=== PATIENT | male | born 1995 | race Caucasian/White ===

== ENCOUNTER → 2020-04-27 | Outpatient (REF) | payer OTHER, SELFPAY | LOC: M LAB REF 17:24 | PROVIDERS: ATTEND Dermatology | DX: D23.72 Other benign neoplasm of skin of left lower limb, including hip (principal) ==

== ENCOUNTER 2021-04-21 05:46 | Emergency (ER) | payer OTHER, SELFPAY ==
[~2021-04-21] VITALS: Ht 177.8 cm; Wt 105.0 kg
[2021-04-21] MEDS ORDERED: NS 1,000 ML IV ONE (07:05)
[2021-04-21] MEDS ORDERED: ACETAMINOPHEN 500 MG TAB PO ONE (07:15)
[2021-04-21] MEDS ORDERED: BENZONATATE 100 MG CAP PO ONE (07:15)
[2021-04-21 07:51] VITALS: O2SAT 94
[2021-04-21 08:01] LABS: BASO % 0.2 % (0.0-1.0); HEMATOCRIT 41.9 % (42.0-52.0); HEMOGLOBIN 14.6 g/dl (13.5-17.5); LYMPH # 0.7 10^3/uL (1.5-5.0); LYMPH % 13.5 % (24.0-44.0); MEAN CORPUSCULAR HEMOGLOBIN 30.4 pg (27.0-33.0); MEAN CORPUSCULAR HGB CONC 34.8 g/dl (32.0-36.5); MEAN CORPUSCULAR VOLUME 87.3 fl (80.0-96.0); MONO # 0.3 10^3/uL (0.0-0.8); MONO % 5.9 % (2.0-8.0); NEUTROPHILS # 3.9 10^3/uL (1.5-8.5); NEUTROPHILS % 79.6 % (36.0-66.0); PLATELET COUNT, AUTOMATED 136 10^3/uL (150-450); WHITE BLOOD COUNT 4.9 10^3/uL (4.0-10.0)
[2021-04-21 08:34] LABS: ALBUMIN 3.4 GM/DL (3.2-5.2); ALT/SGPT 35 U/L (12-78); BILIRUBIN,DIRECT 0.2 MG/DL (0.0-0.2); BILIRUBIN,TOTAL 0.6 MG/DL (0.2-1.0); BLOOD UREA NITROGEN 17 MG/DL (7-18); CALCIUM LEVEL 8.2 MG/DL (8.5-10.1); CARBON DIOXIDE LEVEL 31 MEQ/L (21-32); CHLORIDE LEVEL 99 MEQ/L (98-107); CK-MB VALUE MASS < 1.0 NG/ML (<3.6); CPK CREATINE PHOSPHOKINASE 235 U/L (39-308); CREATININE FOR GFR 0.98 MG/DL (0.70-1.30); GLOMERULAR FILTRATION RATE > 60.0 (>60); GLUCOSE, FASTING 137 MG/DL (70-100); LDH LACTATE DEHYDROGENASE 415 U/L (87-241); LIPASE 79 U/L (73-393); MB/CK RELATIVE INDEX 0.43 (< OR =4); POTASSIUM SERUM 3.9 MEQ/L (3.5-5.1); SODIUM LEVEL 135 MEQ/L (136-145); TOTAL PROTEIN 6.7 GM/DL (6.4-8.2); TROPONIN I < 0.02 NG/ML (< 0.10)
--- NOTE | 2021-04-21 08:49 | REP ---
INDICATION: Abdominal Pain COMPARISON: None. TECHNIQUE: Upright view of the chest with supine and upright views of the abdomen and pelvis. FINDINGS: Frontal upright view of the chest demonstrates no acute cardiopulmonary process or free air below the diaphragm to suspect pneumoperitoneum. Supine and upright views of the abdomen and pelvis demonstrate nonspecific bowel gas pattern without obstruction or perforation. No organomegaly. No abnormal calcifications. Skeletal structures normal for age. IMPRESSION: Nonspecific bowel gas pattern. <Electronically signed by Amor Coto > 04/21/21 [id number]
--- NOTE | 2021-04-21 08:58 | ECGEPIP ---
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
[2021-04-21] MEDS ORDERED: PROAAER10 INH (09:25)
[2021-04-21] MEDS ORDERED: TESS100C PO (09:25)
[2021-04-21 09:37] VITALS: BP 125/58
== END 2021-04-21 10:20 | disposition home or self-care (01) ==
LOC: M ED 05:46
DX: U07.1 COVID-19 (principal); D69.6 Thrombocytopenia, unspecified

== ENCOUNTER 2021-04-24 13:03 | Inpatient (IN) | payer OTHER ==
[~2021-04-24] VITALS: Ht 177.8 cm; Wt 98.0 kg
[~2021-04-24 13:03] MED LIST: PROAAER10 INH; TESS100C PO
[2021-04-24] MEDS ORDERED: ACETAMINOPHEN 325 MG TAB PO ONE (15:35)
[2021-04-24] MEDS ORDERED: dexameTHASONE 20MG/5ML VIAL (J1100 PER 1MG) IV ONE (15:35)
[2021-04-24] MEDS ORDERED: HOME MED LIST COMPLETE! XX SCH (15:45)
[2021-04-24] MEDS: ALBUTEROL 90 MCG/ACT 8GM HFA INHALER INH SCH ×3 (15:55→17:55)
[2021-04-24 16:00] LABS: VENOUS BASE EXCESS 5.6 (-2.0-2.0); VENOUS HCO3 31.4 MEQ/L (23.0-27.0); VENOUS O2 SATURATION 79.3 % (60.0-80.0); VENOUS PARTIAL PRESSURE CO2 49.9 mmHg (38.0-50.0); VENOUS PARTIAL PRESSURE O2 42.8 mmHg (30.0-50.0); VENOUS PH 7.416 UNITS (7.330-7.430); VENOUS TOTAL CO2 32.9 MEQ/L (24.0-28.0)
--- NOTE | 2021-04-24 16:20 | REP ---
INDICATION: Coronavirus workup. COMPARISON: 04/21/2021 frontal view obtained as part of an abdominal series TECHNIQUE: Portable FINDINGS: The technique utilized in obtaining the radiograph has magnified the cardiac silhouette and accentuated the interstitial markings. Patchy bilateral airspace opacities have developed since the last exam. These are accentuated by technique. The CP angles appear sharp. The cardiomediastinal silhouette is stable. There is no change in the osseous structures. IMPRESSION: Bilateral airspace disease consistent with pneumonia <Electronically signed by Marko Hsieh > 04/24/21 [id number]
[2021-04-24 16:40] LABS: HEMATOCRIT 42.3 % (42.0-52.0); HEMOGLOBIN 14.4 g/dl (13.5-17.5); MEAN CORPUSCULAR HEMOGLOBIN 30.6 pg (27.0-33.0); MEAN CORPUSCULAR VOLUME 89.8 fl (80.0-96.0); PLATELET COUNT, AUTOMATED 218 10^3/uL (150-450); RED BLOOD COUNT 4.71 10^6/uL (4.30-6.10); WHITE BLOOD COUNT 5.7 10^3/uL (4.0-10.0)
[2021-04-24 17:28] LABS: ALBUMIN 2.9 GM/DL (3.2-5.2); ALT/SGPT 35 U/L (12-78); BILIRUBIN,TOTAL 0.9 MG/DL (0.2-1.0); BLOOD UREA NITROGEN 16 MG/DL (7-18); CALCIUM LEVEL 8.1 MG/DL (8.5-10.1); CARBON DIOXIDE LEVEL 32 MEQ/L (21-32); CHLORIDE LEVEL 99 MEQ/L (98-107); CK-MB VALUE MASS < 1.0 NG/ML (<3.6); CPK CREATINE PHOSPHOKINASE 297 U/L (39-308); CREATININE FOR GFR 0.88 MG/DL (0.70-1.30); FERRITIN 2795 NG/ML (26-388); GLOMERULAR FILTRATION RATE > 60.0 (>60); GLUCOSE, FASTING 96 MG/DL (70-100); LDH LACTATE DEHYDROGENASE 761 U/L (87-241); MAGNESIUM LEVEL 2.5 MG/DL (1.8-2.4); MB/CK RELATIVE INDEX 0.34 (< OR =4); POTASSIUM SERUM 4.2 MEQ/L (3.5-5.1); SODIUM LEVEL 135 MEQ/L (136-145); TOTAL PROTEIN 6.4 GM/DL (6.4-8.2); TROPONIN I < 0.02 NG/ML (< 0.10)
[2021-04-24 17:42] LABS: ATYPICAL LYMPH 2 % (0-5); LYMPHOCYTES 17 % (16-44); MONOCYTES 8 % (0-5); NEUTROPHILS 63 % (28-66); PLATELET ESTIMATE NORMAL (NORMAL)
[2021-04-24 18:31] LABS: RSV AMPLIFICATION NEGATIVE (NEGATIVE)
[2021-04-24] MEDS ORDERED: ALBUTEROL 90 MCG/ACT 8GM HFA INHALER INH PRN (19:20)
[2021-04-24] MEDS ORDERED: ISOVUE-370 76% 100ML VIAL As Ordered ONE (19:38)
[2021-04-24] MEDS ORDERED: NS 1,000 ML IV SCH (20:25)
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
--- NOTE | 2021-04-24 21:14 | REPVR ---
PROCEDURE INFORMATION: Exam: CTA Chest With Contrast Exam date and time: 04/24/2021 8:31 PM Age: 25 years old Clinical indication: Other: Hypoxia, covid, eval for pe TECHNIQUE: Imaging protocol: Computed tomographic angiography of the chest with contrast. 3D rendering (Not supervised by radiologist): MIP and/or 3D reconstructed images were created by the technologist. Radiation optimization: All CT scans at this facility use at least one of these dose optimization techniques: automated exposure control; mA and/or kV adjustment per patient size (includes targeted exams where dose is matched to clinical indication); or iterative reconstruction. Contrast material: ISOVUE 370; Contrast volume: 75 ml; Contrast route: INTRAVENOUS (IV); COMPARISON: CR PORTABLE CHEST X-RAY 04/24/2021 3:51 PM FINDINGS: Pulmonary arteries: There are no pulmonary emboli. Aorta: There is no aortic dissection or aneurysm. Lungs: Extensive bilateral airspace opacities predominantly peripherally located. Findings consistent with multifocal pneumonitis. Pleural spaces: Unremarkable. No pneumothorax. No pleural effusion. Heart: Unremarkable. No cardiomegaly. No pericardial effusion. Lymph nodes: Unremarkable. No enlarged lymph nodes. Bones/joints: Unremarkable. No acute fracture. Soft tissues: Unremarkable. IMPRESSION: 1. Extensive bilateral airspace opacities predominantly peripherally located. Findings consistent with multifocal pneumonitis. 2. There is no aortic dissection or aneurysm. 3. There are no pulmonary emboli. Electronically signed by: Octaviano Pearson On 04/24/2021 21:14:17 PM
[2021-04-24 23:29] VITALS: BP 113/70
[2021-04-24] MEDS: BENZONATATE 100 MG CAP PO SCH (23:35)
[2021-04-25] VITALS (7 sets, daily range): BP systolic 115–120; BP diastolic 70–80; PULSE 89; O2SAT 89–92
[2021-04-25 01:51] LABS: HEMATOCRIT 43.8 % (42.0-52.0); HEMOGLOBIN 15.1 g/dl (13.5-17.5); MEAN CORPUSCULAR HEMOGLOBIN 30.9 pg (27.0-33.0); MEAN CORPUSCULAR HGB CONC 34.5 g/dl (32.0-36.5); MEAN CORPUSCULAR VOLUME 89.8 fl (80.0-96.0); PLATELET COUNT, AUTOMATED 232 10^3/uL (150-450); RED BLOOD COUNT 4.88 10^6/uL (4.30-6.10); WHITE BLOOD COUNT 3.2 10^3/uL (4.0-10.0)
[2021-04-25 02:23] LABS: ATYPICAL LYMPH 6 % (0-5); LYMPHOCYTES 21 % (16-44); METAMYELOCYTES 1 % (0-0); MONOCYTES 6 % (0-5); NEUTROPHILS 64 % (28-66); PLATELET ESTIMATE NORMAL (NORMAL)
[2021-04-25 02:31] LABS: BLOOD UREA NITROGEN 20 MG/DL (7-18); CALCIUM LEVEL 9.1 MG/DL (8.5-10.1); CARBON DIOXIDE LEVEL 31 MEQ/L (21-32); CHLORIDE LEVEL 100 MEQ/L (98-107); CREATININE FOR GFR 0.83 MG/DL (0.70-1.30); GLOMERULAR FILTRATION RATE > 60.0 (>60); GLUCOSE, FASTING 142 MG/DL (70-100); MAGNESIUM LEVEL 2.7 MG/DL (1.8-2.4); POTASSIUM SERUM 4.2 MEQ/L (3.5-5.1); SODIUM LEVEL 136 MEQ/L (136-145); TROPONIN I < 0.02 NG/ML (< 0.10)
[2021-04-25] MEDS ORDERED: FUROSEMIDE 20MG/2ML VIAL (J1940) IV ONE (04:10)
[2021-04-25] MEDS ORDERED: CALCIUM GLUCONATE 1,000 MG in D5W MINI-BAG PLUS 100 ML IV ONE (05:00)
[2021-04-25] MEDS: COMBIVENT RESPIMAT 100-20MCG INHALER 4GM INH SCH ×3 (07:49→18:03)
[2021-04-25] MEDS: ENOXAPARIN 40MG/0.4ML SYRINGE (J1650 PER 10MG) SC SCH (08:53)
[2021-04-25] MEDS: ASCORBIC ACID 500 MG TAB PO SCH (08:54)
[2021-04-25] MEDS: dexameTHASONE 4 MG/ML 1ML VIAL (J1100 PER 1MG) IV SCH (08:54)
[2021-04-25] MEDS: ZINC SULFATE 220 MG CAP PO SCH (08:54)
[2021-04-25] MEDS: BENZONATATE 100 MG CAP PO SCH ×3 (08:54→21:05)
[2021-04-25] MEDS: ASPIRIN 81MG ENTERIC TABLET PO SCH (08:54)
[2021-04-25] MEDS: guaiFENesin ER 600 MG TAB PO SCH ×2 (09:00→21:05)
--- NOTE | 2021-04-25 10:10 | ECGEPIP ---
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
--- NOTE | 2021-04-25 11:05 | IPNPDOC ---
Text Note Date of Service The patient was seen on 04/25/21. NOTE Subjective: Patient is a 25-year-old male without any significant PMHx admitted overnight for acute respiratory failure secondary to COVID19 pneumonia. He states he first became sick on 04/14/2021 with fatigue and chest pain. He went to an urgent care on Thursday, 04/15 and tested negative, but states they did not get far enough back in his nose. He then represented to an urgent care on 04/17 where he tested positive for Covid pneumonia and was sent home with an inhaler and an incentive spirometer. Since then he has become progressively more short of breath and has experienced fatigue, non-productive cough, loose stools, with some intermittent chest pain. He was admitted overnight and has already progressed from 3 to 6 L nasal cannula. Otherwise he states he has had no changes since last night and outside of the nonproductive cough states that he feels fine. Objective: Vitals: See below General: Pleasant, mildly diaphoretic appearing male laying back in bed in no acute distress speaking in complete sentences HEENT: NC, AT. EOMI, no scleral icterus. No pharyngeal erythema, mucous membranes moist. Neck: No lymphadenopathy or JVD CV: RRR, Normal S1 and S2. No murmurs, gallops, or rubs. Resp: CTAB with mildly diminished breath sounds. No wheezes, crackles, or rhonchi. No dullness to percussion. Abdomen: Bowel sounds present. Soft, NT, ND. Extremities: No swelling or edema. Microbiology: Blood cultures pending x2 Assessment/Plan: #. Acute respiratory failure 2/2 COVID19 pneumonia - Patient has not received any vaccinations in the past - Suspected day 1 of illness 04/14/2021, currently on day 12 of illness, outside remdesivir and monoclonal antibody window. -Discussed advanced directives, he wishes to be full code, unsure of whether or not he would want trach/peg. -CTA chest showing viral pneumonitis, no signs of PE. -Procalcitonin 0.05 will hold off on any antibiotic therapy -IV Decadron twice daily day 1, will continue x6 days - Will start supportive care with Mucinex / Incentive spirometer / Acapella #. Chest pain -Troponins x3 are negative, EKG w/ T wave inversions in his inferior leads but is not actively complaining of any chest pain/pressure while he was in the room or getting the EKG done, No ST changes. #. Hypermagnesemia -Continue to monitor, patient is asymptomatic -Mag mildly increased today but with no ECG changes (QT prolongation, QRS duration, [place] prolongation) -No signs of magnesium toxicity (nausea, flushing, headache, lethargy, drowsiness) #. Obesity - BMI 32.4 -Complicating medical care -risk factor for worsening COVID pneumonia #. DVT prophylaxis -BMI<35, normal CrCl, D dimer<4000, Lovenox 40mg CODE STATUS: FULL CODE Dispo: - Pending clinical improvement VS,Fishbone, I+O VS, Fishbone, I+O Laboratory Tests 04/24/21 15:45 04/25/21 01:42 Vital Signs Date Time Temp Pulse Resp B/P (MAP) Pulse Ox O2 Delivery O2 Flow Rate FiO2 04/25/21 08:00 97.2 71 18 120/70 (87) 91 Nasal Cannula 5.0 GME ATTESTATION GME ATTESTATION My faculty preceptor for this patient encounter was physically present during the encounter and was fully available. All aspects of the patient interview, examination, medical decision making process, and medical care plan development were reviewed and approved by the faculty preceptor. The faculty preceptor is aware and concurs with the plan as stated in the body of this note and will a ttest to such by his/her cosignature. ATTENDING NOTE I, Aditi Rehman, have independently examined this patient and performed my own physical exam, as well as reviewed the documentation and edited where necessary. I have discussed in detail with the resident / student the findings and plan of treatment as documented by the resident / student and edited their note. I agree with their findings and treatment plan and have edited their documentation. I will continue to follow the patient during this hospital stay. I have advised the patient that he would benefit from receiving Remdesivir - Patient has reported that he disagrees and that it will in fact increase the amount of time in the hospital - I again stressed importance / benefit that it will provide early in the infection process - Patient has adamantly refused - has been made aware of the risk of not starting therapy (worsening of infection, disability and/or ); has verbalized understanding BRENDAN MANSFIELD DO Apr 25, 2021 11:05 ADITI REHMAN MD Apr 25, 2021 13:23
--- NOTE | 2021-04-25 18:47 | ECGEPIP ---
[facility] - ED Test Date: 2021-04-24 Pat Name: BARBARA SNYDER Department: Room: - Gender: Male Housing Relocation: JONATAN : 1995 Requested By: CARMITA VERGARA Order Number: [id number] Reading MD: Isamar Black Measurements Intervals [place] Rate: 98 P: 30 VT: 134 QRS: 21 QRSD: 72 T: -15 QT: 344 QTc: 439 Interpretive Statements Normal sinus rhythm T wave abnormality, consider inferior ischemia similar 04/21/21 Electronically Signed on 04-25-2021 18:47:17 EDT by Isamar Black
[2021-04-26] VITALS (22 sets, daily range): BP systolic 99–130; BP diastolic 56–80; O2SAT 88–95
[2021-04-26] MEDS: COMBIVENT RESPIMAT 100-20MCG INHALER 4GM INH SCH ×5 (07:56→23:33)
[2021-04-26 07:58] LABS: HEMATOCRIT 43.5 % (42.0-52.0); HEMOGLOBIN 14.9 g/dl (13.5-17.5); MEAN CORPUSCULAR HEMOGLOBIN 30.8 pg (27.0-33.0); MEAN CORPUSCULAR HGB CONC 34.3 g/dl (32.0-36.5); MEAN CORPUSCULAR VOLUME 89.9 fl (80.0-96.0); PLATELET COUNT, AUTOMATED 315 10^3/uL (150-450); RED BLOOD COUNT 4.84 10^6/uL (4.30-6.10); WHITE BLOOD COUNT 8.2 10^3/uL (4.0-10.0)
[2021-04-26 08:08] LABS: INR 1.09; PARTIAL THROMBOPLASTIN TIME 27.6 SECONDS (25.9-37.0); PROTHROMBIN TIME 14.5 SECONDS (12.7-14.5)
[2021-04-26 08:53] LABS: ATYPICAL LYMPH 10 % (0-5); LYMPHOCYTES 13 % (16-44); MONOCYTES 3 % (0-5); NEUTROPHILS 74 % (28-66)
[2021-04-26 08:54] LABS: PLATELET ESTIMATE NORMAL (NORMAL)
[2021-04-26 09:09] LABS: ALT/SGPT 38 U/L (12-78); BILIRUBIN,DIRECT 0.4 MG/DL (0.0-0.2); BILIRUBIN,TOTAL 0.9 MG/DL (0.2-1.0); BLOOD UREA NITROGEN 31 MG/DL (7-18); CALCIUM LEVEL 8.7 MG/DL (8.5-10.1); CARBON DIOXIDE LEVEL 33 MEQ/L (21-32); CHLORIDE LEVEL 102 MEQ/L (98-107); CPK CREATINE PHOSPHOKINASE 86 U/L (39-308); CREATININE FOR GFR 0.77 MG/DL (0.70-1.30); FERRITIN 2318 NG/ML (26-388); GLOMERULAR FILTRATION RATE > 60.0 (>60); GLUCOSE, FASTING 105 MG/DL (70-100); LDH LACTATE DEHYDROGENASE 575 U/L (87-241); MAGNESIUM LEVEL 2.7 MG/DL (1.8-2.4); POTASSIUM SERUM 4.4 MEQ/L (3.5-5.1); SODIUM LEVEL 141 MEQ/L (136-145); TOTAL PROTEIN 6.6 GM/DL (6.4-8.2); TROPONIN I < 0.02 NG/ML (< 0.10)
[2021-04-26] MEDS: ASPIRIN 81MG ENTERIC TABLET PO SCH (09:58)
[2021-04-26] MEDS: BENZONATATE 100 MG CAP PO SCH ×3 (09:58→20:59)
[2021-04-26] MEDS: ZINC SULFATE 220 MG CAP PO SCH (09:58)
[2021-04-26] MEDS: ASCORBIC ACID 500 MG TAB PO SCH (09:58)
[2021-04-26] MEDS: guaiFENesin ER 600 MG TAB PO SCH ×2 (09:58→20:59)
[2021-04-26] MEDS: ENOXAPARIN 40MG/0.4ML SYRINGE (J1650 PER 10MG) SC SCH (09:59)
[2021-04-26] MEDS: dexameTHASONE 4 MG/ML 1ML VIAL (J1100 PER 1MG) IV SCH (09:59)
--- NOTE | 2021-04-26 11:53 | IPNPDOC ---
Text Note Date of Service The patient was seen on 04/26/21. NOTE Subjective: No acute events overnight. Patient continues to have ongoing non productive cough, chest pain that he attributes from the cough itself and some mild shortness of breath. Outside of that there have been no changes he states from yesterday. He denies any fever, chills, nausea, vomiting, abdominal pain, swelling in his arms or his legs. Objective: Vitals: See below General: Pleasant, mildly diaphoretic appearing male laying back in bed in no acute distress speaking in complete sentences HEENT: NC, AT. EOMI, no scleral icterus. No pharyngeal erythema, mucous m embranes moist. Neck: No lymphadenopathy or JVD CV: RRR, Normal S1 and S2. No murmurs, gallops, or rubs. Resp: CTAB with full breath sounds. No wheezes, crackles, or rhonchi. No dullness to percussion. Abdomen: Bowel sounds present. Soft, NT, ND. Extremities: No swelling or edema. Vascular: Capillary refill less than 2 seconds. Microbiology: Blood cultures pending x2 Assessment/Plan: #. Acute respiratory failure 2/2 COVID19 pneumonia - Patient has not received any Covid vaccinations in the past - Suspected day 1 of illness 04/14/2021, currently on day 13 of illness, outside remdesivir and monoclonal antibody window. -Discussed advanced directives, he wishes to be full code, unsure of whether or not he would want trach/peg. -CTA chest showing viral pneumonitis, no signs of PE. -Repeat procalcitonin pending. Other inflammatory markers appear to be downtrending. -IV Decadron twice daily day 2, will continue x6 days - Will continue care with Mucinex / Incentive spirometer / Acapella #. Chest pain -Troponins x3 are negative, EKG w/ T wave inversions in his inferior leads but is not actively complaining of any chest pain/pressure while he was in the room or getting the EKG done, No ST changes. #. Hypermagnesemia -Continue to monitor, patient is asymptomatic -Mag unchanged today but with no ECG changes (QT prolongation, QRS duration, [place] prolongation) -No signs of magnesium toxicity (nausea, flushing, headache, lethargy, drowsiness) #. Obesity - BMI 32.4 -Complicating medical care -risk factor for worsening COVID pneumonia #. DVT prophylaxis -BMI<35, normal CrCl, D dimer<4000, Lovenox 40mg CODE STATUS: FULL CODE Dispo: - Pending clinical improvement VS,Fishbone, I+O VS, Fishbone, I+O Laboratory Tests 04/26/21 07:14 Vital Signs Date Time Temp Pulse Resp B/P (MAP) Pulse Ox O2 Delivery O2 Flow Rate FiO2 04/26/21 09:02 8.0 04/26/21 08:12 97.5 72 17 99/56 (70) 95 High Flow Cannula I&O- Last 24 Hours up to 6 AM 04/26/21 06:00 Intake Total 0 ml Output Total 450 ml Balance -450 ml GME ATTESTATION GME ATTESTATION My faculty preceptor for this patient encounter was physically present during the encounter and was fully available. All aspects of the patient interview, examination, medical decision making process, and medical care plan development were reviewed and approved by the faculty preceptor. The faculty preceptor is aware and concurs with the plan as stated in the body of this note and will attest to such by his/her cosignature. ATTENDING NOTE I, Aditi Rehman, have independently examined this patient and performed my own physical exam, as well as reviewed the documentation and edited where necessary. I have discussed in detail with the resident / student the findings and plan of treatment as documented by the resident / student and edited their note. I agree with their findings and treatment plan and have edited their documentation. I will continue to follow the patient during this hospital stay. BRENDAN MANSFIELD DO Apr 26, 2021 11:53 ADITI REHMAN MD Apr 26, 2021 13:05
[2021-04-26 16:24] LABS: NT-PRO BNP 22 PG/ML (<125)
[2021-04-27] VITALS (18 sets, daily range): BP systolic 105–131; BP diastolic 55–73; O2SAT 89–96
[2021-04-27] MEDS: COMBIVENT RESPIMAT 100-20MCG INHALER 4GM INH SCH ×6 (03:30→23:28)
[2021-04-27 05:02] LABS: BASO % 0.2 % (0.0-1.0); HEMATOCRIT 42.4 % (42.0-52.0); HEMOGLOBIN 14.3 g/dl (13.5-17.5); LYMPH # 1.6 10^3/uL (1.5-5.0); LYMPH % 15.2 % (24.0-44.0); MEAN CORPUSCULAR HEMOGLOBIN 30.7 pg (27.0-33.0); MEAN CORPUSCULAR HGB CONC 33.7 g/dl (32.0-36.5); MONO # 0.9 10^3/uL (0.0-0.8); MONO % 8.6 % (2.0-8.0); NEUTROPHILS # 7.7 10^3/uL (1.5-8.5); NEUTROPHILS % 74.9 % (36.0-66.0); PLATELET COUNT, AUTOMATED 331 10^3/uL (150-450); RED BLOOD COUNT 4.66 10^6/uL (4.30-6.10); WHITE BLOOD COUNT 10.3 10^3/uL (4.0-10.0)
[2021-04-27 05:22] LABS: BLOOD UREA NITROGEN 31 MG/DL (7-18); CALCIUM LEVEL 8.6 MG/DL (8.5-10.1); CARBON DIOXIDE LEVEL 35 MEQ/L (21-32); CHLORIDE LEVEL 103 MEQ/L (98-107); GLOMERULAR FILTRATION RATE > 60.0 (>60); GLUCOSE, FASTING 100 MG/DL (70-100); MAGNESIUM LEVEL 2.7 MG/DL (1.8-2.4); POTASSIUM SERUM 4.3 MEQ/L (3.5-5.1); SODIUM LEVEL 141 MEQ/L (136-145)
[2021-04-27] MEDS: BENZONATATE 100 MG CAP PO SCH ×3 (07:44→20:27)
[2021-04-27] MEDS: guaiFENesin ER 600 MG TAB PO SCH ×2 (07:44→20:27)
[2021-04-27] MEDS: ASPIRIN 81MG ENTERIC TABLET PO SCH (07:44)
[2021-04-27] MEDS: ASCORBIC ACID 500 MG TAB PO SCH (07:44)
[2021-04-27] MEDS: ZINC SULFATE 220 MG CAP PO SCH (07:44)
[2021-04-27] MEDS: ENOXAPARIN 40MG/0.4ML SYRINGE (J1650 PER 10MG) SC SCH (07:45)
[2021-04-27] MEDS: dexameTHASONE 4 MG/ML 1ML VIAL (J1100 PER 1MG) IV SCH (07:45)
[2021-04-27] MEDS: FLUTICASONE PROP 0.05% NASAL SPRAY 16 GM (FLONASE) NARES SCH ×2 (09:00→20:27)
[2021-04-27] MEDS ORDERED: SODIUM CHLORIDE NASAL 0.65% SPRAY BTL (OCEAN) PRN (10:45)
--- NOTE | 2021-04-27 11:51 | IPNPDOC ---
Text Note Date of Service The patient was seen on 04/27/21. NOTE Subjective: No acute events overnight. Patient states he feels like he is doing better and his pleuritic chest pain is improved. Non productive cough is ongoing and he complains today of nasal congestion. He denies any fever, chills, chest pain, SOB, difficulty breathing, nausea, vomiting, abdominal pain, swelling in his arms or his legs. Objective: Vitals: See below General: Pleasant, mildly diaphoretic appearing male laying back in bed in no acute distress speaking in complete sentences HEENT: NC, AT. EOMI, no scleral icterus. No pharyngeal erythema, mucous membranes moist. Neck: No lymphadenopathy or JVD CV: RRR, Normal S1 and S2. No murmurs, gallops, or rubs. Resp: CTAB with full breath sounds. No wheezes, crackles, or rhonchi. No dullness to percussion. Abdomen: Bowel sounds present. Soft, NT, ND. Extremities: No swelling or edema. Vascular: Capillary refill less than 2 seconds. Microbiology: Blood cultures x2 negative at 48 hours. Assessment/Plan: #. Acute respiratory failure 2/2 COVID19 pneumonia - Patient has not received any Covid vaccinations in the past - Suspected day 1 of illness 04/14/2021, currently on day 14 of illness, outside remdesivir and monoclonal antibody window. -Discussed advanced directives, he wishes to be full code, unsure of whether or not he would want trach/peg. -CTA chest showing viral pneumonitis, no signs of PE. -Repeat procalcitonin negative. Other inflammatory markers appear to be downtrending. -IV Decadron twice daily day 2, will continue x6 days - Will continue care with Mucinex / Incentive spirometer / Acapella/ saline nasal spray and flonase for nasal congestion -Emphasized to patient the importance of proning and use of incentive spirometry. #. Chest pain -Resolved. -Troponins x3 are negative, EKG w/ T wave inversions in his inferior leads but is not actively complaining of any chest pain/pressure while he was in the room or getting the EKG done, No ST changes. #. Hypermagnesemia -Continue to monitor, patient is asymptomatic -Mag again unchanged today but with no ECG changes (QT prolongation, QRS duration, [place] prolongation) -No signs of magnesium toxicity (nausea, flushing, headache, lethargy, drowsiness) #. Obesity - BMI 32.4 -Complicating medical care -risk factor for worsening COVID pneumonia #. DVT prophylaxis -BMI<35, normal CrCl, D dimer<4000, Lovenox 40mg CODE STATUS: FULL CODE Dispo: - Pending clinical improvement VS,Fishbone, I+O VS, Fishbone, I+O Laboratory Tests 04/27/21 04:42 Vital Signs Date Time Temp Pulse Resp B/P (MAP) Pulse Ox O2 Delivery O2 Flow Rate FiO2 04/27/21 08:16 90 Nasal Cannula 5.0 04/27/21 07:48 68 04/27/21 07:42 96.4 20 118/73 (88) I&O- Last 24 Hours up to 6 AM 04/27/21 06:00 Intake Total 880 ml Output Total 550 ml Balance 330 ml GME ATTESTATION GME ATTESTATION My faculty preceptor for this patient encounter was physically present during the encounter and was fully available. All aspects of the patient interview, examination, medical decision making process, and medical care plan development were reviewed and approved by the faculty preceptor. The faculty preceptor is aware and concurs with the plan as stated in the body of this note and will attest to such by his/her cosignature. ATTENDING NOTE I, Aditi Rehman, have independently examined this patient and performed my own physical exam, as well as reviewed the documentation and edited where necessary. I have discussed in detail with the resident / student the findings and plan of treatment as documented by the resident / student and edited their note. I agree with their findings and treatment plan and have edited their documentation. I will continue to follow the patient during this hospital stay. BRENDAN MANSFIELD DO Apr 27, 2021 11:50 ADITI REHMAN MD Apr 27, 2021 11:58
[2021-04-28] VITALS (18 sets, daily range): BP systolic 109–120; BP diastolic 58–73; O2SAT 94–97
[2021-04-28] MEDS: COMBIVENT RESPIMAT 100-20MCG INHALER 4GM INH SCH ×6 (03:32→23:33)
[2021-04-28 06:51] LABS: BASO % 0.2 % (0.0-1.0); LYMPH # 1.4 10^3/uL (1.5-5.0); LYMPH % 10.8 % (24.0-44.0); MEAN CORPUSCULAR HEMOGLOBIN 30.4 pg (27.0-33.0); MEAN CORPUSCULAR HGB CONC 34.1 g/dl (32.0-36.5); MEAN CORPUSCULAR VOLUME 88.9 fl (80.0-96.0); MONO # 1.3 10^3/uL (0.0-0.8); MONO % 9.6 % (2.0-8.0); NEUTROPHILS # 10.1 10^3/uL (1.5-8.5); NEUTROPHILS % 78.2 % (36.0-66.0); PLATELET COUNT, AUTOMATED 335 10^3/uL (150-450); RED BLOOD COUNT 4.61 10^6/uL (4.30-6.10)
[2021-04-28 07:02] LABS: INR 1.1; PARTIAL THROMBOPLASTIN TIME 26.2 SECONDS (25.9-37.0); PROTHROMBIN TIME 14.6 SECONDS (12.7-14.5)
[2021-04-28 07:17] LABS: ALBUMIN 2.9 GM/DL (3.2-5.2); ALT/SGPT 97 U/L (12-78); BILIRUBIN,DIRECT 0.6 MG/DL (0.0-0.2); BILIRUBIN,TOTAL 1.2 MG/DL (0.2-1.0); BLOOD UREA NITROGEN 25 MG/DL (7-18); CALCIUM LEVEL 8.5 MG/DL (8.5-10.1); CARBON DIOXIDE LEVEL 32 MEQ/L (21-32); CHLORIDE LEVEL 102 MEQ/L (98-107); CPK CREATINE PHOSPHOKINASE 145 U/L (39-308); FERRITIN 1375 NG/ML (26-388); GLOMERULAR FILTRATION RATE > 60.0 (>60); GLUCOSE, FASTING 102 MG/DL (70-100); LDH LACTATE DEHYDROGENASE 465 U/L (87-241); MAGNESIUM LEVEL 2.6 MG/DL (1.8-2.4); NT-PRO BNP 29 PG/ML (<125); SODIUM LEVEL 138 MEQ/L (136-145); TOTAL PROTEIN 6.5 GM/DL (6.4-8.2); TROPONIN I < 0.02 NG/ML (< 0.10)
[2021-04-28] MEDS: ASCORBIC ACID 500 MG TAB PO SCH (09:15)
[2021-04-28] MEDS: ENOXAPARIN 40MG/0.4ML SYRINGE (J1650 PER 10MG) SC SCH (09:15)
[2021-04-28] MEDS: ASPIRIN 81MG ENTERIC TABLET PO SCH (09:15)
[2021-04-28] MEDS: dexameTHASONE 4 MG/ML 1ML VIAL (J1100 PER 1MG) IV SCH (09:15)
[2021-04-28] MEDS: guaiFENesin ER 600 MG TAB PO SCH ×2 (09:15→20:11)
[2021-04-28] MEDS: ZINC SULFATE 220 MG CAP PO SCH (09:15)
[2021-04-28] MEDS: FLUTICASONE PROP 0.05% NASAL SPRAY 16 GM (FLONASE) NARES SCH (09:15)
[2021-04-28] MEDS: BENZONATATE 100 MG CAP PO SCH ×3 (09:15→20:11)
--- NOTE | 2021-04-28 09:33 | IPNPDOC ---
Text Note Date of Service The patient was seen on 04/28/21. NOTE Subjective: Patient is a 25-year-old male with no signficiant PMHx who presented to [facility] with complaints of shortness of breath was found to be COVID19 positive on 04/24. . On arrival to emergency room, patient was found to be hypoxic requiring supplemental oxygen and was admitted to the hospital service for further evaluation and treatment. Patient was initially offered Remdesivir, however has refused. Patient has understood the risks of making this decision (including but not limited to worsening of infection, disability and/or ). Patient was seen and examined at the bedside. Patient is still on 5 L of nasal cannula oxygen. He's been noncompliant with prone positioning and use of incentive spirometry. Patient denies any chest pain or palpitations. Still reports a nonproductive cough. Does not express any nausea, vomiting, abdominal pain, diarrhea, or urinary discomfort. Objective: Vitals (See below) General: Lying in bed, appears comfortable, AAOx3 HEENT: NC, AT CVS: +S1S2 Lungs: Diminished breath sounds bilaterally. No auscultated evidence of crackles, wheezing or rhonchi Abdomen: Soft, ND, NT Extremities: - Edema, - Calf tenderness Imaging: CXR 04/24: Bilateral airspace disease consistent with pneumonia CTA chest 04/24: 1. Extensive bilateral airspace opacities predominantly peripherally located. Findings consistent with multifocal pneumonitis. 2. There is no aortic dissection or aneurysm. 3. There are no pulmonary emboli. Assessment and plan: Acute hypoxic respiratory failure - likely 2/2 COVID19 pneumonia - COVID positive on 04/24 - Patient did not receive any COVID19 vaccination for personal reasons - Patient continues to remain in significant amount of oxygen - Patient has been advised to prone position and use incentive spirometer; however, has been reluctant to do so - c/w Dexamethasone (Day #3) - c/w Supportive care with Mucinex / Incentive spirometer / Acapella / Saline nasal spray s/p Chest pain - Has not experienced any chest pain, palpitations or diaphoresis this morning - EKG repeated shows evidence of persistent T-wave changes that are unchanged from admission - Troponin trend has been negative - c/w Telemetry monitoring Leukocytosis - likely 2/2 corticosteroids - Afebrile - PCT negative - No indication for antibiotics at this time Hypermagnesemia Obesity - BMI 32.4 - Complicating medical care / high risk of decompensating GI prophylaxis - c/w DVT prophylaxis - c/w Lovenox Code status: - Full code Disposition: - Awaiting clinical improvement VS,Fishbone, I+O VS, Fishbone, I+O Laboratory Tests 04/28/21 06:11 04/28/21 06:12 Vital Signs Date Time Temp Pulse Resp B/P (MAP) Pulse Ox O2 Delivery O2 Flow Rate FiO2 04/28/21 07:49 72 04/28/21 07:00 95 Nasal Cannula 5.0 04/28/21 04:30 24 04/28/21 04:00 97.6 118/71 (87) I&O- Last 24 Hours up to 6 AM 04/28/21 06:00 Intake Total 600 ml Output Total 600 ml Balance 0 ml VIKI REHMAN MD Apr 28, 2021 09:33
--- NOTE | 2021-04-28 11:10 | ECGEPIP ---
[facility] Test Date: 2021-04-28 Pat Name: BARBARA SNYDER Department: Room: [place] [address] Gender: Male Clarity Specialists: milton : 1995 Requested By: VIKI REHMAN Order Number: [id number] Reading MD: Donnell Bland Measurements Intervals [place] Rate: 85 P: 30 [place]: 140 QRS: 30 QRSD: 72 T: -44 QT: 372 QTc: 442 Interpretive Statements Normal sinus rhythm T wave abnormality, consider inferolateral ischemia Similar to tracing done 04-25-21 Electronically Signed on 04-28-2021 11:09:43 EDT by Donnell Bland
--- NOTE | 2021-04-28 12:07 | REP ---
INDICATION: SOB / Hypoxia COMPARISON: 04/24/2021 TECHNIQUE: Portable AP view of the chest FINDINGS: Mediastinum and cardiac silhouette are normal. Patchy bilateral infiltrates are again identified and similar to prior examination. No effusion. No pneumothorax. Skeletal structures intact. IMPRESSION: Multifocal airspace disease similar to prior examination. <Electronically signed by Amor Coto > 04/28/21 1200
[2021-04-29] VITALS (14 sets, daily range): BP systolic 103–130; BP diastolic 58–78; O2SAT 92–96
[2021-04-29] MEDS: COMBIVENT RESPIMAT 100-20MCG INHALER 4GM INH SCH ×6 (03:19→23:14)
[2021-04-29] MEDS: dexameTHASONE 4 MG/ML 1ML VIAL (J1100 PER 1MG) IV SCH (08:45)
[2021-04-29] MEDS: ASCORBIC ACID 500 MG TAB PO SCH (08:45)
[2021-04-29] MEDS: ASPIRIN 81MG ENTERIC TABLET PO SCH (08:45)
[2021-04-29] MEDS: guaiFENesin ER 600 MG TAB PO SCH ×2 (08:46→19:52)
[2021-04-29] MEDS: BENZONATATE 100 MG CAP PO SCH ×3 (08:46→19:52)
[2021-04-29] MEDS: ENOXAPARIN 40MG/0.4ML SYRINGE (J1650 PER 10MG) SC SCH (08:46)
[2021-04-29] MEDS: ZINC SULFATE 220 MG CAP PO SCH (08:46)
--- NOTE | 2021-04-29 13:22 | IPNPDOC ---
Text Note Date of Service The patient was seen on 04/29/21. NOTE Subjective: No acute events overnight. Patient says he feels fine currently. He did have a nosebleed overnight, the nasal cannula was discontinued in favor of Venturi mask for comfort. He denies any fever, chills, chest pain, shortness of breath, difficulty breathing, nausea, vomiting, abdominal pain or any swelling in his arms or legs. He continues to have a nonproductive cough. Objective: Vitals: See below General: Pleasant male laying back in bed in no acute distress speaking in complete sentences HEENT: NC, AT. EOMI, no scleral icterus. No pharyngeal erythema, mucous membranes moist. Neck: No lymphadenopathy or JVD CV: RRR, Normal S1 and S2. No murmurs, gallops, or rubs. Resp: CTAB with full breath sounds. No wheezes, crackles, or rhonchi. No dullness to percussion. Abdomen: Bowel sounds present. Soft, NT, ND. Extremities: No swelling or edema. Vascular: Capillary refill less than 2 seconds. Microbiology: Blood cultures x2 negative. Imaging: CXR 04/24: Bilateral airspace disease consistent with pneumonia CTA chest 04/24: 1. Extensive bilateral airspace opacities predominantly peripherally located. Findings consistent with multifocal pneumonitis. 2. There is no aortic dissection or aneurysm. 3. There are no pulmonary emboli. Assessment/Plan: #. Acute hypoxic respiratory failure - likely 2/2 COVID19 pneumonia - COVID positive on 04/17, [place] [facility] [place], unvaccinated. Outside monoclonal Ab window - Still requiring oxygen, but it appears he is requiring less - Procalcitonin negative. Other inflammatory markers appear to be down trending. - IV Decadron twice daily day 5, will continue x10 days - Will continue care with Mucinex / Incentive spirometer / Acapella/ saline nasal spray and flonase for nasal congestion - Emphasized to patient the importance of proning and use of incentive spirometry, he continues to do so reluctantly though. #. Leukocytosis -afebrile, inflammatory markers downtrending, suspect this could be from the steroids. #. Chest pain -Resolved. -Troponins x3 are negative, EKG w/ persistent T wave inversions in his inferior leads but is not actively complaining of any chest pain/pressure while he was in the room or getting the EKG done, No ST changes. #. Hypermagnesemia -Continue to monitor, patient is asymptomatic -Mag 2.6, stable, no ECG changes (QT prolongation, QRS duration, OR prolongation) -No signs of magnesium toxicity (nausea, flushing, headache, lethargy, drowsiness) #. Obesity - BMI 32.4 -Complicating medical care -risk factor for worsening COVID pneumonia #. DVT prophylaxis -BMI<35, normal CrCl, D dimer<4000, Lovenox 40mg CODE STATUS: FULL CODE Dispo: - Pending clinical improvement, possibly tomorrow. VS,Fishbone, I+O VS, Fishbone, I+O Vital Signs Date Time Temp Pulse Resp B/P (MAP) Pulse Ox O2 Delivery O2 Flow Rate FiO2 04/29/21 11:40 86 04/29/21 08:51 98.1 20 130/66 (87) 94 Venturi Mask 12.0 35 I&O- Last 24 Hours up to 6 AM 04/29/21 05:59 Intake Total 1350 ml Output Total 950 ml Balance 400 ml GME ATTESTATION GME ATTESTATION My faculty preceptor for this patient encounter was physically present during the encounter and was fully available. All aspects of the patient interview, examination, medical decision making process, and medical care plan development were reviewed and approved by the faculty preceptor. The faculty preceptor is aware and concurs with the plan as stated in the body of this note and will attest to such by his/her cosignature. ATTENDING NOTE I, Aditi Rehman, have independently examined this patient and performed my own physical exam, as well as reviewed the documentation and edited where necessary. I have discussed in detail with the resident / student the findings and plan of treatment as documented by the resident / student and edited their note. I agree with their findings and treatment plan and have edited their documentation. I will continue to follow the patient during this hospital stay. BRENDAN MANSFIELD DO Apr 29, 2021 13:14 ADITI REHMAN MD Apr 29, 2021 14:30
[2021-04-29 14:01] LABS: BASO # 0.1 10^3/uL (0.0-0.2); BASO % 0.5 % (0.0-1.0); HEMATOCRIT 42.4 % (42.0-52.0); HEMOGLOBIN 14.5 g/dl (13.5-17.5); LYMPH # 0.6 10^3/uL (1.5-5.0); LYMPH % 4.3 % (24.0-44.0); MEAN CORPUSCULAR HEMOGLOBIN 30.6 pg (27.0-33.0); MEAN CORPUSCULAR HGB CONC 34.2 g/dl (32.0-36.5); MEAN CORPUSCULAR VOLUME 89.5 fl (80.0-96.0); MONO # 0.6 10^3/uL (0.0-0.8); MONO % 4.5 % (2.0-8.0); NEUTROPHILS # 11.7 10^3/uL (1.5-8.5); NEUTROPHILS % 88.7 % (36.0-66.0); PLATELET COUNT, AUTOMATED 357 10^3/uL (150-450); RED BLOOD COUNT 4.74 10^6/uL (4.30-6.10); WHITE BLOOD COUNT 13.2 10^3/uL (4.0-10.0)
[2021-04-29 14:28] LABS: ALT/SGPT 197 U/L (12-78); BLOOD UREA NITROGEN 23 MG/DL (7-18); CALCIUM LEVEL 9.1 MG/DL (8.5-10.1); CARBON DIOXIDE LEVEL 31 MEQ/L (21-32); CHLORIDE LEVEL 100 MEQ/L (98-107); CREATININE FOR GFR 0.75 MG/DL (0.70-1.30); GLOMERULAR FILTRATION RATE > 60.0 (>60); GLUCOSE, FASTING 160 MG/DL (70-100); MAGNESIUM LEVEL 2.6 MG/DL (1.8-2.4); PHOSPHORUS LEVEL 3.1 MG/DL (2.5-4.9); POTASSIUM SERUM 4.9 MEQ/L (3.5-5.1); SODIUM LEVEL 135 MEQ/L (136-145); TOTAL PROTEIN 7.1 GM/DL (6.4-8.2)
[2021-04-30] MEDS: COMBIVENT RESPIMAT 100-20MCG INHALER 4GM INH SCH ×2 (03:00→07:29)
[2021-04-30 06:00] VITALS: BP 117/68
[2021-04-30 07:00] LABS: HEMOGLOBIN 13.3 g/dl (13.5-17.5); MEAN CORPUSCULAR HEMOGLOBIN 30.8 pg (27.0-33.0); MEAN CORPUSCULAR HGB CONC 34.1 g/dl (32.0-36.5); MEAN CORPUSCULAR VOLUME 90.3 fl (80.0-96.0); PLATELET COUNT, AUTOMATED 310 10^3/uL (150-450); RED BLOOD COUNT 4.32 10^6/uL (4.30-6.10); WHITE BLOOD COUNT 9.8 10^3/uL (4.0-10.0)
[2021-04-30 07:14] LABS: INR 1.17; PROTHROMBIN TIME 15.3 SECONDS (12.7-14.5)
[2021-04-30 07:15] LABS: PARTIAL THROMBOPLASTIN TIME 26.7 SECONDS (25.9-37.0)
[2021-04-30 07:25] LABS: ALBUMIN 2.6 GM/DL (3.2-5.2); ALT/SGPT 157 U/L (12-78); BILIRUBIN,DIRECT 0.2 MG/DL (0.0-0.2); BILIRUBIN,TOTAL 0.7 MG/DL (0.2-1.0); CPK CREATINE PHOSPHOKINASE 61 U/L (39-308); FERRITIN 1939 NG/ML (26-388); LDH LACTATE DEHYDROGENASE 267 U/L (87-241); NT-PRO BNP 21 PG/ML (<125); TROPONIN I < 0.02 NG/ML (< 0.10)
[2021-04-30] MEDS: ZINC SULFATE 220 MG CAP PO SCH (08:32)
[2021-04-30] MEDS: guaiFENesin ER 600 MG TAB PO SCH (08:32)
[2021-04-30] MEDS: ASCORBIC ACID 500 MG TAB PO SCH (08:32)
[2021-04-30] MEDS: ASPIRIN 81MG ENTERIC TABLET PO SCH (08:32)
[2021-04-30] MEDS: BENZONATATE 100 MG CAP PO SCH (08:32)
[2021-04-30] MEDS: ENOXAPARIN 40MG/0.4ML SYRINGE (J1650 PER 10MG) SC SCH ×2 (08:33→08:34)
[2021-04-30] MEDS: dexameTHASONE 4 MG/ML 1ML VIAL (J1100 PER 1MG) IV SCH (08:33)
[2021-04-30 09:00] VITALS: O2SAT 94
[2021-04-30] MEDS ORDERED: MUCI600T31 PO (09:14)
[2021-04-30] MEDS ORDERED: ASCO50TA PO (09:14)
[2021-04-30] MEDS ORDERED: DEXA6TAB PO (09:14)
[2021-04-30] MEDS ORDERED: ZINC220CA PO (09:14)
--- NOTE | 2021-04-30 14:07 | DS.PDOC ---
Discharge Summary General Date of Admission Apr 24, 2021 at 19:07 Date of Discharge 04/30/21 Attending Physician: ANDERSON LINARES MD Discharge Summary PROCEDURES PERFORMED DURING STAY: None. ADMITTING/DISCHARGE DIAGNOSES: Acute hypoxic respiratory failure COVID-19 pneumonia Leukocytosis Chest pain Hypermagnesemia Obesity COMPLICATIONS/CHIEF COMPLAINT: SOB HISTORY OF PRESENT ILLNESS/HOSPITAL COURSE: "Braulio Breen is a 25-year-old male who denies significant medical history or home medication. Patient reports that he went to work per usual and Thursday noticed he had a headache and by the time he got home he had chills sensation. Patient then reports from Thursday through Thursday having cough, diaphoresis, changes in taste/smell as well as some shortness of breath. Patient went to urgent care to be tested on Thursday and was found to be Covid positive. He went home with inhaler and oxygen monitoring as well as Tessalon Perles. Patient reports that over the course of this past week he noted worsening shortness of breath to the point where he cannot even walk up stairs comfortably. He reports at home his SPO2 84% on room air. Upon arrival to ED today his SPO2 is 87% improved with 3 L nasal cannula to 94%. Patient reports he feels somewhat better with oxygen but not extensively so. Patient does remark that he had an episode of chest pain across the anterior side of his chest upon waking up yesterday and it resolved on its own. He does not endorse coughing as bringing the chest pain back on at this time. As he felt he was not getting better he decided to come to ER. He notes that his and children are also Covid positive but they do not have similar extent of symptoms of him. Of note, PCR positive Covid, chest x-ray positive bilateral pneumonia. No leukocytosis, no lactic acidosis or elevated procalcitonin. Creatinine 0.88, AST 63, ALT 38, elevated LDH and CRP. Blood culture sent. CTA chest pend. Patient will be admitted for further evaluation management presenting concerns." Patient was admitted overnight and started on IV steroids and supplemental oxygen, acapella, incentive spirometer, and inhaler, but declined remdesivir treatment. It was discovered the following day that he was actually outside the window for remdesivir or monoclonal antibody treatment as he tested positive at an urgent care on 8/18 and so was on at least day 12 of illness. Over subsequent days his treatment continued in the same way with small improvements in his inflammatory markers and pulmonary status. After 5 days he was able to tolerate room air adequately and maintain saturations above 91% while ambulating in his hospital room without any supplemental oxygen. As a result he was deemed stable for discharge home with instructions to establish care with a primary care provider as well as a 3-day supply of Decadron and some zinc and vitamin C. He was also counseled on the importance of getting the vaccine once he was able to do so. Patient was instructed to return to the hospital if his symptoms worsened and remain compliant with local health department instructions regarding quarantine. DISCHARGE MEDICATIONS: Please see below. ALLERGIES: Please see below. PHYSICAL EXAMINATION ON DISCHARGE: VITAL SIGNS: Please see below. General: Pleasant male laying back in bed in no acute distress speaking in complete sentences HEENT: NC, AT. EOMI, no scleral icterus. No pharyngeal erythema, mucous membranes moist. Neck: No lymphadenopathy or JVD CV: RRR, Normal S1 and S2. No murmurs, gallops, or rubs. Resp: CTAB with full breath sounds. No wheezes, crackles, or rhonchi. No dullness to percussion. Abdomen: Bowel sounds present. Soft, NT, ND. Extremities: No swelling or edema. Vascular: Capillary refill less than 2 seconds. LABORATORY DATA: Please see below. IMAGIN04/24/2021 chest x-ray: "IMPRESSION: Bilateral airspace disease consistent with pneumonia" 04/24/2021 CT angiogram chest: "IMPRESSION: 1. Extensive bilateral airspace opacities predominantly peripherally located. Findings consistent with multifocal pneumonitis. 2. There is no aortic dissection or aneurysm. 3. There are no pulmonary emboli. " 04/28/21 chest x-ray: "IMPRESSION: Multifocal airspace disease similar to prior examination." PROGNOSIS: Good ACTIVITY: As tolerated DIET: As tolerated DISCHARGE PLAN: Home DISPOSITION: 01 Home, Self-Care. DISCHARGE INSTRUCTIONS: 1. Please establish care with a primary care provider and remain compliant with medication regimen. 2. Please return to the hospital if symptoms worsen. DISCHARGE CONDITION: Stable. TIME SPENT ON DISCHARGE: 33 minutes. Vital Signs/I&Os Vital Signs Date Time Temp Pulse Resp B/P (MAP) Pulse Ox O2 Delivery O2 Flow Rate FiO2 04/30/21 09:00 94 Room Air 04/30/21 06:00 97.5 72 18 117/68 (84) 2.0 04/29/21 08:51 35 I&O- Last 24 Hours up to 6 AM 04/30/21 05:59 Intake Total 1420 ml Output Total 550 ml Balance 870 ml Laboratory Data Labs 24H Laboratory Tests 2 04/30/21 06:45: Nucleated Red Blood Cells % (auto) 0.0 04/30/21 06:46: Prothrombin Time 15.3H, Prothromb Time International Ratio 1.17, Activated Partial Thromboplast Time 26.7, Fibrinogen 650H, Ferritin 1939H, Total Bilirubin 0.7, Direct Bilirubin 0.2, Aspartate Amino Transf (AST/SGOT) 41H, Alanine Aminotransferase (ALT/SGPT) 157H, Alkaline Phosphatase 38L, Lactate Dehydrogenase 267H, Total Creatine Kinase 61, Troponin I < 0.02, ZM-[id number]-Type Natriuretic Peptide 21, Total Protein 7.0, Albumin 2.6L, Albumin/Globulin Ratio 0.6, Procalcitonin <0.05 CBC/BMP Laboratory Tests 04/30/21 06:45 Microbiology Microbiology 04/24/21 Blood Culture - Final, Complete NO GROWTH AFTER 5 DAYS 04/24/21 Blood Culture - Final, Complete NO GROWTH AFTER 5 DAYS Discharge Medications Scheduled Ascorbic Acid (Vitamin C) 500 Mg Tablet, 1,000 MG PO DAILY Benzonatate (Tessalon Perle) 100 Mg Capsule, 1 CAP PO TID for cough Dexamethasone (Dexamethasone) 6 Mg Tablet, 6 MG PO DAILY Guaifenesin (Mucinex) 600 Mg Tab.er.12h, 1,200 MG PO BID Zinc Sulfate (Zinc Sulfate) 220 Mg Capsule, 220 MG PO DAILY Scheduled PRN Albuterol Sulfate (Proair Hfa) 8.5 Gm Hfa.aer.ad, 2 PUFF INH Q4-6HP PRN for wheezing Allergies Coded Allergies: Penicillins (Verified Allergy, Unknown, CHILDHOOD REACTION, 04/24/21) GME ATTESTATION GME ATTESTATION My faculty preceptor for this patient encounter was physically present during the encounter and was fully available. All aspects of the patient interview, examination, medical decision making process, and medical care plan development were reviewed and approved by the faculty preceptor. The faculty preceptor is a fisher and concurs with the plan as stated in the body of this note and will attest to such by his/her cosignature. ATTENDING NOTE Attending Attestation: I have evaluated the patient. I agree with the finding and the plan of care as documented in the residents note. BRENDAN MANSFIELD DO Apr 30, 2021 14:07 ANDERSON LINARES MD May 01, 2021 06:16
== END 2021-04-30 10:03 | disposition home or self-care (01) | DRG 137 ==
LOC: EDBD 13:03 → M ED 13:03 → M ED INP 19:07 → M 4MAIN 22:07
PROVIDERS: ADMIT Family Medicine; ATTEND Internal Medicine
PROC: 3E0333Z Introduction of Anti-inflammatory into Peripheral Vein, Percutaneous Approach (ICD-10-PCS; principal; 2021-04-24)
DX: U07.1 COVID-19 (principal); J96.01 Acute respiratory failure with hypoxia; J12.82 Pneumonia due to coronavirus disease 2019; E83.41 Hypermagnesemia; E66.9 Obesity, unspecified; Z68.32 Body mass index [BMI] 32.0-32.9, adult; R04.0 Epistaxis

== ENCOUNTER → 2022-08-06 | Outpatient (REF) | payer OTHER ==
[~2022-08-06] MED LIST changes: +ASCO50TA PO; +DEXA6TAB PO; +MUCI600T31 PO; +ZINC220CA PO
[2022-08-06 17:59] LABS: ALKALINE PHOSPHATASE 49 U/L (46-116); ALT/SGPT 33 U/L (7.0-40); AST/SGOT 20 U/L (<34); BILIRUBIN,TOTAL 0.3 MG/DL (0.3-1.2); BLOOD UREA NITROGEN 24 MG/DL (9-23); CALCIUM LEVEL 9.2 MG/DL (8.5-10.1); CARBON DIOXIDE LEVEL 31 MMOL/L (20-31); CHLORIDE LEVEL 102 MMOL/L (98-107); CHOLESTEROL LEVEL 131 MG/DL (<200); CHOLESTEROL RISK RATIO 4.47 (<5); CREATININE FOR GFR 1.03 MG/DL (0.70-1.30); GLOMERULAR FILTRATION RATE > 60.0 (>60); GLUCOSE, FASTING 116 MG/DL (60-100); HDL CHOLESTEROL 29.3 MG/DL (>40); LDL CHOLESTEROL 67.7 MG/DL (<100); NON-HDL-C 102 MG/DL; POTASSIUM SERUM 4.1 MMOL/L (3.5-5.1); SODIUM LEVEL 140 MMOL/L (136-145); THYROID STIMULATING HORMONE 1.857 uIU/ML (0.55-4.78); TOTAL PROTEIN 6.8 G/DL (5.7-8.2); TRIGLYCERIDES LEVEL 170 MG/DL (<150)
[2022-08-06 18:00] LABS: TOTAL 25(OH) VITAMIN D 20.9 NG/ML (20.0-100.0)
== END ==
LOC: M LAB REF 16:25
PROVIDERS: ATTEND Nurse Practitioner Family
DX: Z13.228 Encounter for screening for other metabolic disorders (principal)

== ENCOUNTER → 2023-09-02 | Outpatient (CLI) | payer OTHER ==
[2023-09-02 19:31] LABS: ALBUMIN 4.3 G/DL (3.2-5.2); ALKALINE PHOSPHATASE 50 U/L (46-116); ALT/SGPT 33 U/L (7.0-40); AST/SGOT 20 U/L (<34); BILIRUBIN,TOTAL 0.4 MG/DL (0.3-1.2); BLOOD UREA NITROGEN 21 MG/DL (9-23); CALCIUM LEVEL 9.8 MG/DL (8.5-10.1); CARBON DIOXIDE LEVEL 29 MMOL/L (20-31); CHLORIDE LEVEL 103 MMOL/L (98-107); CHOLESTEROL LEVEL 165 MG/DL (<200); CHOLESTEROL RISK RATIO 6.44 (<5); CREATININE FOR GFR 1.08 MG/DL (0.70-1.30); GLOMERULAR FILTRATION RATE > 60.0 (>60); GLUCOSE, FASTING 106 MG/DL (60-100); HDL CHOLESTEROL 25.6 MG/DL (>40); LDL CHOLESTEROL 81.6 MG/DL (<100); NON-HDL-C 139.4 MG/DL; POTASSIUM SERUM 3.8 MMOL/L (3.5-5.1); SODIUM LEVEL 140 MMOL/L (136-145); THYROID STIMULATING HORMONE 1.133 uIU/ML (0.55-4.78); TOTAL PROTEIN 7.1 G/DL (5.7-8.2); TRIGLYCERIDES LEVEL 289 MG/DL (<150)
[2023-09-02 21:12] LABS: HEMOGLOBIN A1c 5.3 % (4.0-6.0)
== END ==
LOC: M PLAIMG 16:08
PROVIDERS: ATTEND Nurse Practitioner Family
DX: G47.9 Sleep disorder, unspecified (principal); E66.9 Obesity, unspecified

== ENCOUNTER → 2024-03-23 | Outpatient (CLI) | payer OTHER | LOC: M PLAIMG 14:50 | PROVIDERS: ATTEND Nurse Practitioner Family | DX: M41.86 Other forms of scoliosis, lumbar region (principal) ==

== ENCOUNTER → 2025-05-16 | Outpatient (REF) | payer OTHER, MEDICAID ==
[2025-05-16 17:39] LABS: ESTIMATED AVERAGE GLUCOSE 108.0 MG/DL (60-110)
[2025-05-16 17:44] LABS: CALCIUM LEVEL 9.5 MG/DL (8.5-10.1); CARBON DIOXIDE LEVEL 30 MMOL/L (20-31); CHLORIDE LEVEL 105 MMOL/L (98-107); CHOLESTEROL LEVEL 162 MG/DL (<200); CHOLESTEROL RISK RATIO 5.07 (<5); CREATININE FOR GFR 1.14 MG/DL (0.70-1.30); GLOMERULAR FILTRATION RATE > 90.0 (>60); LDL CHOLESTEROL 67.9 MG/DL (<100); NON-HDL-C 130.1 MG/DL; POTASSIUM SERUM 4.2 MMOL/L (3.5-5.1); SODIUM LEVEL 143 MMOL/L (136-145); TRIGLYCERIDES LEVEL 311 MG/DL (<150)
== END ==
LOC: M LAB REF 16:22
PROVIDERS: ATTEND Nurse Practitioner Family
DX: E66.9 Obesity, unspecified (principal)

== ENCOUNTER → 2025-05-22 | Outpatient (REF) | payer OTHER, MEDICAID | LOC: M LAB REF 16:06 | PROVIDERS: ATTEND Surgery | DX: L72.11 Pilar cyst (principal) ==

== ENCOUNTER → 2025-08-28 | Outpatient (REF) | payer OTHER, MEDICAID | LOC: M LAB REF 16:21 | PROVIDERS: ATTEND Nurse Practitioner Family | DX: J06.9 Acute upper respiratory infection, unspecified (principal) ==